=== PATIENT | female | born 1970 | race Caucasian/White ===

== ENCOUNTER 2019-05-20 10:06 | Outpatient (REF) | payer BC, SELFPAY ==
--- NOTE | 2019-05-20 09:15 | PAPFT_PTH ---
PATIENT: Jodie Resendez LOC: [facility] U#:[id number] AGE/SX: 48/F ROOM: RE05/20/[address]: Miguelina aJckson : 1970 BED: DIS: 05/20/2019 SPEC #: [id number] RECD: 05/21/19 13:00 STATUS: DANIEL REQ #: [id number] KARIE: 05/20/19 09:[address]: Miguelina Jackson DEPT: [facility] Cytology RECD BY: Leora Castellon Tissues: 1 - CX/ENDOCX FOR PAP SMEARS Procedures: PAP THIN PREP/UVM Screening HPV DNA PROBE Comments: [id number]
== END 2019-05-20 10:26 ==
LOC: NCHCN 10:06
PROVIDERS: PCP Nurse Practitioner Family; Visit Provider Nurse Practitioner Family
DX: Z12.4 Encounter for screening for malignant neoplasm of cervix (principal); Z11.59 Encounter for screening for other viral diseases; Z01.419 Encounter for gynecological examination (general) (routine) without abnormal findings
CPT/HCPCS: 88142; 87624

== ENCOUNTER 2019-05-31 13:38 | Outpatient (REF) | payer BC, SELFPAY ==
[2019-05-31 19:45] LABS: Calculated LDL 195 mg/dL; Cholesterol 270 mg/dL (50-200); Glucose 89 mg/dL (70-100); HDL Cholesterol 64 mg/dL (40-60); Triglyceride 58 mg/dL (30-150)
== END 2019-05-31 13:58 ==
LOC: NCHCN 13:38
PROVIDERS: PCP Nurse Practitioner Family; Visit Provider Nurse Practitioner Family
DX: Z00.00 Encounter for general adult medical examination without abnormal findings (principal); Z13.1 Encounter for screening for diabetes mellitus; Z13.220 Encounter for screening for lipoid disorders
CPT/HCPCS: 80061; 82947

== ENCOUNTER 2019-07-29 09:03 | Day surgery (SDC) | payer BC, SELFPAY ==
--- NOTE | 2019-07-29 06:45 | COLE_ITS ---
Date of service: 07/29/19 Time of Service: 10:04 Colonoscopy Report Date of procedure: 07/29/19 Pre-op diagnosis general: Colon CAncer Screening Post-op diagnosis procedure note: other (rectal polyps and Grade 1 internal hemorrhoids) Procedure: Colonoscopy with polypectomy by cold forceps Surgeon: Cee Mahmood Anesthesia proc note operative: other (General/ ASA2 /Kevin Augustine, COMPUTER NETWORKING INSTRUCTOR) Estimated blood loss (mL): 3 Pathology: other (Rectal polyps x4) Complications: None Disposition: same day Indications: The patient is here for Colonoscopy pre-op. She has no family history of colon cancer. She has not had any bowel habit changes. -Discussed colonoscopy bowel prep as well as the procedure. Discussed possible complications of the procedure to include bleeding, pain, perforation, missed small lesion/polyp, sore throat, aspiration and adverse reaction to the medications. Questions were answered to patient?s satisfaction. No guarantees were implied or given. Prep: Miralax/Dulcolax Procedure Start Time: 10:04 Procedure End Time: 10:29 Retraction Time: 11 minutes Findings: 4 small rectal polyps Grade 1 internal hemorrhoids Procedure Description: After informed consent was obtained the patient was taken to the procedure room and placed in a left decubitous position. Monitors were applied and a time out was done. The patients name, date of , procedure, allergies to medications and metal in their body was reviewed. The patient was then sedated. Once sedated and comfortable a rectal exam was done. External exam was normal. Internal exam revealed a normal sphincter tone and no palpable masses. The scope was then introduced and retro-flexed. Grade 1 internal hemorrhoids were identified. 4 small polyps were noted in the rectum. The scope was then advanced to the cecum with some difficulty. The colon was very floppy. Pressure had to be applied to the abdomen to get to the cecum. The TI and appendiceal orifice were identified. The prep was good. The scope was then slowly retracted over 11 minutes back into the rectum. Polyps were removed with cold forceps in the rectum x 4. The scope was removed and the patient was woken up and taken back to Same day surgery in stable condition. The patient tolerated the procedure well and there were no immediate complications. Follow up: The patient should follow up in 3-5 years unless they develop changes in bowel habits or other new gastrointestinal complaints.
--- NOTE | 2019-07-29 06:45 | W.UPDATEHP ---
Date of service: 07/29/19 Time of Service: 09:38 Updated H&P Refer to Most Recent Clinic Note/H&P Dated: 07/11/19 H&P was reviewed,patient examined No change has occured in patient's condition since last H&P completed
--- NOTE | 2019-07-29 06:46 | W.PM.DSUDISC ---
Discharge Plan Disposition Patient Disposition: HOME Condition: Good Discharge Details Reason For Visit: Colonoscopy Attending Provider: Cee Mahmood Primary Care Provider: Miguelina Jackson Home Meds and New Rx's Prescriptions: Continued sertraline [Zoloft] 50 mg tablet 50 mg PO DAILY RF: 0 One Daily Multi-Vit w-Mineral 4.5 mg iron tablet PO DAILY RF: 0 Discontinued polyethylene glycol 3350 17 gram/dose powder 238 g PO ONCE Qty: 238 RF: 0 bisacodyl [Dulcolax (bisacodyl)] 5 mg tablet,delayed release (DR/EC) 5 mg PO ONCE Qty: 4 RF: 0 Discharge Instructions Instructions: Colonoscopy (DC), Colorectal Polyps (DC), Hemorrhoids (DC) Additional Instructions: Findings: small internal hemorrhoids 4 small rectal polyps Follow up: 3-5 years Please call if you develop: fevers >101.5 Nausea or Vomiting Abdominal pain that is not transient DAY SURGERY UNIT POST ENDOSCOPY INSTRUCTIONS 1. Because there will be medication in your system for the next 24 hours, you may feel a little sleepy. Your coordination will be affected. Therefore: a. Do not drive or operate dangerous equipment for 24 hours. b. Do not drink alcohol beverages for 24 hours (not even beer). c. Plan to go home and rest for the day. 2. Generally there are no restrictions on your activity after a day or so has gone by, but you may feel a bit fatigued for a few days. 3 After you arrive home you may have a light meal and return to a normal diet as you can tolerate it without feeling sick to your stomach. 4. After surgery, you may feel pain or discomfort. This should be only transient, but if it persists please contact your doctor. 5. If there are any questions regarding the findings of your procedure, please feel free to contact your doctor. 6. If you are unable to contact your doctor with a problem, contact the hospital at [phone]. 7. Continue all your regular medications unless directed otherwise. I understand the above instructions and have no questions. Signature of Patient or Responsible Adult Escort Date/Time Name of Responsible Adult Escort Signature of Nurse Date/Time Activity:: Activity as Tolerated Diet:: High Fiber diet Discharge Orders Discharge Orders: Discharge Order (Routine); Ordered 07/29/19 Ordered By: Cee Mahmood DS: Diagnosis Discharge Diagnosis (1) S/P colonoscopy: Status: Acute (2) Colorectal polyps: Status: Acute (3) Internal hemorrhoids without complication: Status: Acute
[2019-07-29 09:34] VITALS: BP 131/74; PULSE 77; RESP 16; TEMP 36.3; O2SAT 99
--- NOTE | 2019-07-29 09:38 | HPE_ITS ---
Date of service: 07/29/19 Time of Service: 09:38 Updated H&P Refer to Most Recent Clinic Note/H&P Dated: 07/11/19 H&P was reviewed,patient examined No change has occured in patient's condition since last H&P completed cc: Dictated by: HARINI HEART MD Dictated: 07/29/19Time: 644 <Electronically signed by Cee Heart M.D.> Date: 09/28/18937 Date: Date: Transcribed Date: 07/29/19 Transcribed Time: 644By: GIOVANY
[2019-07-29] MEDS: Lactated Ringers 1,000 ML 80 ML IV (09:45)
--- NOTE | 2019-07-29 10:05 | BOWEL_PTH ---
PATIENT: Jodie Resendez LOC: [facility] U#:[id number] AGE/SX: 48/F ROOM: RE07/29/[address]: Cee Mahmood MD : 1970 BED: DIS: 07/29/2019 SPEC #: [id number] RECD: 07/29/19 12:48 STATUS: DANIEL REQ #: [id number] KARIE: 07/29/19 10:[address]: Cee Mahmood DEPT: Surgical Specimen RECD BY: Leora Castellon ENTERED: 07/29/19 12:49 SP TYPE: Bowel OTHR DR: Miguelina Jackson Tissues: 1 - BIOPSY BOWEL Procedures: GROSS AND MICRO LEVEL 4 Comments: [id number]
[2019-07-29 11:03] VITALS: BP 118/68; PULSE 65; RESP 16; TEMP 36.2; O2SAT 100
== END 2019-07-29 11:19 | disposition home or self-care (01) ==
LOC: SUR 09:04
PROVIDERS: PCP Nurse Practitioner Family; Visit Provider Surgery
PROC: 0DJD8ZZ Inspection of Lower Intestinal Tract, Via Natural or Artificial Opening Endoscopic (ICD-10-PCS; CPT 45378; principal; 2019-07-29 09:45)
DX: Z12.11 Encounter for screening for malignant neoplasm of colon (principal); K64.0 First degree hemorrhoids; K63.5 Polyp of colon
CPT/HCPCS: 45380; 81025; 88305; J2250; J3010

== ENCOUNTER 2019-09-11 01:48 | Outpatient (CLI) | payer BC, SELFPAY ==
--- NOTE | 2019-09-11 11:04 | DI.MAMMO_ITS ---
EXAM: MG MAMMO SCREENING CLINICAL HISTORY: SCREENING, [facility] Z00.00 TECHNIQUE: Mammograms were interpreted according to the usual protocol including computer analysis w [employer] CAD system, tomosynthesis and C-view imaging. COMPARISON: 2009 through 2014 FINDINGS: The breasts are composed of heterogeneously dense fibroglandular densities, Breast Density category C . No suspicious masses or suspicious microcalcifications are seen. No skin thickening or abnormal axillary lymph nodes are seen. There has been no significant change from prior exams. There is motion on the right MLO view. The patient should return for a repeat right MLO view at no a dditional charge. IMPRESSION: Left breast: BIRADS Category 1, negative mammogram. Yearly screening mammography is recommended. Right breast: BI-RADS Cat 0 - Assessment Incomplete: Need additional imaging evaluation. A repeat ri ght MLO view is requested. BREAST DENSITY: The mammogram demonstrates the patient's breast tissue is dense. Dense breast tissue is very common and is not abnormal but dense breast tissue can make it harder to find cancer on a ma mmogram. Also, dense breast tissue may increase their breast cancer risk. This information about the result of the mammogram report was provided to the patient to raise their awareness. Use this report when you speak with the patient about their risks for breast cancer, which includes their family hist ory. At that time, you may recommend for more screening tests (Ultrasound or MRI) as they might be us eful based on their risk. A negative radiographic report should not delay biopsy if a dominant or clinically suspicious mass is present. Up to ten percent of cancers are not identified on mammography. A negative report may reinforce clinical impression. Adenosis and dense breasts may obscure an underlying neoplasm. False positive reports average 6 to 10%.
== END 2019-09-11 02:08 ==
PROVIDERS: PCP Nurse Practitioner Family; Visit Provider Nurse Practitioner Family
DX: Z00.00 Encounter for general adult medical examination without abnormal findings (principal); Z12.31 Encounter for screening mammogram for malignant neoplasm of breast; R92.8 Other abnormal and inconclusive findings on diagnostic imaging of breast
CPT/HCPCS: 77063; 77067

== ENCOUNTER 2019-09-19 00:52 | Outpatient (CLI) | payer BC, SELFPAY ==
--- NOTE | 2019-09-19 14:17 | DI.MAMMO_ITS ---
EXAM: MG MAMMO SCREEN CALL BACK UNI CLINICAL HISTORY: F/U MAMMO, MOTION ON RT MLO VIEW. TECHNIQUE: Full field digital CC and MLO mammographic images were obtained with 3D tomosynthesis and utilizing computer aided detection (CAD). COMPARISON: 2010 to 2014 FINDINGS: Repeat MLO views were performed due to motion. Breast density: D, extremely dense which could obscure underlying abnormalities. Masses/Architectural Distortion: None seen. Microcalcifications: No suspicious pleomorphic-type calcifications are seen. Skin Thickening/Nipple Retraction: None. Axilla: Unremarkable. IMPRESSION: 1. BI-RADS category 1, negative. No significant interval change with no specific features of maligna ncy noted. 2. Unless there is more urgent need, screening mammography is recommended, as per [place] [employer] guidelines. Breast Density - Category D - Extremely dense A negative radiographic report should not delay biopsy if a dominant or clinically suspicious mass is present. Up to ten percent of cancers are not identified on mammography. A negative report may reinforce clinical impression. Adenosis and dense breasts may obscure an underlying neoplasm. False positive reports average 6 to 10%. Patient will receive a letter notifying them of these results.
== END 2019-09-19 01:12 ==
PROVIDERS: PCP Nurse Practitioner Family; Visit Provider Nurse Practitioner Family
DX: Z12.31 Encounter for screening mammogram for malignant neoplasm of breast (principal); R92.8 Other abnormal and inconclusive findings on diagnostic imaging of breast; N64.59 Other signs and symptoms in breast
CPT/HCPCS: 77063; 77067

== ENCOUNTER 2020-05-27 07:43 | Outpatient (REF) | payer BC, SELFPAY ==
[2020-05-27 21:16] LABS: Calculated LDL 180 mg/dL (<100); Cholesterol 253 mg/dL (<200); Glucose 92 mg/dL (74-106); HDL Cholesterol 66 mg/dL (40-60); TSH 0.71 uIU/mL (0.36-3.74); Triglyceride 39 mg/dL (<150)
== END 2020-05-27 08:03 ==
LOC: NCHCN 07:43
PROVIDERS: PCP Nurse Practitioner Family; Visit Provider Nurse Practitioner Family
DX: Z00.00 Encounter for general adult medical examination without abnormal findings (principal); Z13.220 Encounter for screening for lipoid disorders; Z13.1 Encounter for screening for diabetes mellitus; N95.1 Menopausal and female climacteric states
CPT/HCPCS: 80061; 82947; 84443

== ENCOUNTER 2021-09-22 08:46 | Outpatient (REF) | payer BC, SELFPAY ==
[2021-09-22 14:15] LABS: Calculated LDL 176 mg/dL (<100); Cholesterol 248 mg/dL (<200); Glucose 88 mg/dL (74-106); HDL Cholesterol 58 mg/dL (40-60); Triglyceride 70 mg/dL (<150)
[2021-09-23 05:49] LABS: Vitamin D 25 Total 52.1 ng/mL (30-100)
== END 2021-09-22 08:47 | disposition home or self-care (01) ==
LOC: NCHCN 08:46
PROVIDERS: PCP Nurse Practitioner Family; Visit Provider Nurse Practitioner Family
DX: Z00.00 Encounter for general adult medical examination without abnormal findings (principal); R53.83 Other fatigue
CPT/HCPCS: 80061; 82306; 82947

== ENCOUNTER 2021-12-01 02:27 | Outpatient (CLI) | payer BC, SELFPAY ==
--- NOTE | 2021-12-01 08:00 | DI.MAMMO_ITS ---
Exam(s) MAMMO SCREENING EXAM: MAMMO SCREENING CLINICAL HISTORY: SCREENING, [facility], Z00.00 TECHNIQUE: Mammograms were interpreted according to the usual protocol including computer analysis w [employer] CAD system, tomosynthesis and C-view imaging. COMPARISON: FINDINGS: The breasts are heterogeneously dense. No dominant mass or clumped microcalcification is identified in either breast. The current examination is compared with previous examinations including September 05 and there has been no gross interval change in appearance in comparison with the prior studies. IMPRESSION: No specific evidence of malignancy at this time. Routine screening examinations are suggested at yea rly intervals due to the family history of breast carcinoma. BI-RADS Category 1 - Negative Breast Density - Category C - Heterogeneously dense
== END 2021-12-01 02:47 ==
PROVIDERS: PCP Nurse Practitioner Family; Visit Provider Nurse Practitioner Family
DX: Z12.31 Encounter for screening mammogram for malignant neoplasm of breast (principal); R92.8 Other abnormal and inconclusive findings on diagnostic imaging of breast
CPT/HCPCS: 77063; 77067

== ENCOUNTER 2022-09-28 13:29 | Outpatient (REF) | payer BC, SELFPAY ==
--- OUTSIDE RECORDS SUMMARY | 2022-09-28 13:34 | XMS_ITS ---
:1970 Author Organization [facility] Address [address] [place] [address] Care Team Providers Name Role Phone Keith Britton Unavailable Unavailable PROBLEMS Type Condition ICD9-CM [id number] Onset Condition SNOMED Cod e Code Code Dates Status Problem Pain in right M79.671 Active 149240 [id number] foot Problem Other hammer M20.42 Active 9808102 427143023 toe(s) (acquired), left foot Problem Other hammer M20.41 Active 8068386 706045247 toe(s) (acquired), right foot Problem Hallux valgus M20.12 Active 802595 01 (acquired), left foot Problem Pain of left M79.672 Active 2822454 2 foot Problem Scar tissue L90.5 Active 67447618 Problem Bunion of great M21.611 Active 4156 07081 toe of right foot Problem Bunion of great M21.612 Active 4156 95183 toe of left foot Problem Neuroma of G57.62 Active 544376638 second interspace of left foot Problem Pigmented skin L81.9 Active 0008 lesion ALLERGIES No Known Allergies ENCOUNTERS Encounter Location Date Diagnosis [facility] [address] Dec, Postop [place] Z09 [place] [address] tissue L90. 5 [facility] [address] Dec, [place] [address] [facility] [address] Nov, [place] [address] [facility] [address] Nov, [place] [address] [facility] [address] Nov, Postop [place] Z09 [place] [id number] tissue L90. 5 [facility] [address] Nov, [place] [address] [facility] [address] 08 Nov, 2017 [facility]op [facility] [place] [id number] [facility] [address] 14 Oct, 2017 [facility]op [facility] [place] [id number] [facility] [address] Sep, [facility]op [facility] [place] [id number] [facility] [address] Sep, Postop [facility] [place] [id number] [facility] [address] Sep, [place] [address] [address], [place] [address], [place] [address] [facility] [address] 21 Aug, 2017 [place] [address] [facility] [address] 14 Aug, 2017 [place] [id number] interspace of left foot G57.62 ; Pigment ed skin lesion L81.9 ; H allux valgus (acquired ), left foot M20.12 and Bunion of great toe of lef t foot M21.612 [facility] [address] 27 Jul, 2017 [place] [id number] interspace of left foot G57.62 ; Pigment ed skin lesion L81.9 ; H allux valgus (acquired ), left foot M20.12 and Bunion of great toe of lef t foot M21.612 [facility] [address] 20 Jul, 2017 [place] [id number] [facility] [address] 14 May, 2017 [place] [id number] interspace of left foot G57.62 ; Pigment ed skin lesion L81.9 ; H allux valgus (acquired ), left foot M20.12 and Bunion of great toe of lef t foot M21.612 [facility] [address] Dec, [place] [id number] interspace of left foot G57.62 and Pigme nted skin lesion L81.9 [facility] [address] 18 Dec, 2016 [facility] [place] [id number] [facility] [address] [facility] 31 Sep, 2016 Pain of left foot M79.672 [address] [place], [place] ; Pain in right foot [address] M79.671 ; Bunion of great toe of left foot M21.612 ; Bunion of grea t toe of right foot M21.6 11 ; Other hammer toe (s) (acquired), left foot M20.42 and Other hammer toe(s) (acquired ), right foot M20.41 [facility] [address] [facility] 13 Aug, 2016 [place] [address] IMMUNIZATIONS Vaccine Route Administration Date Status Dexamethasone sodium phosphate OT Jul 31, 2017 A dministered 4mg per mL Other/Miscellaneous Depo-medrol 40 OT Jul 31, 2017 Administered Other/Miscellaneous SOCIAL HISTORY Qualifiers Date Former Smoker REASON FOR REFERRAL FUNCTIONAL STATUS PLAN OF CARE Activity Details Follow Up prn Reason: VITAL SIGNS Height 71 in 2018-01-01 Height 71 in 2017-11-23 Height 71 in 2017-11-09 Height 71 in 2017-10-18 Height 71 in 2017-10-02 Height 71 in 2017-09-25 Height 71 in 2017-08-17 Height 71 in 2017-07-31 Height 71 in 2017-05-18 Height 71 in 2016-12-28 Height 71 in 2016-10-04 Weight 139.2 lbs 2018-01-01 Weight 135.8 lbs 2017-11-23 Weight 141.2 lbs 2017-08-17 Weight 138.8 lbs 2017-07-31 Weight 141.8 lbs 2017-05-18 Weight 133.4 lbs 2016-12-28 Weight 131.0 lbs 2016-10-04 BMI 19.41 kg/m2 2018-01-01 BMI 18.94 kg/m2 2017-11-23 BMI 19.69 kg/m2 2017-08-17 BMI 19.36 kg/m2 2017-07-31 BMI 19.77 kg/m2 2017-05-18 BMI 18.60 kg/m2 2016-12-28 BMI 18.27 kg/m2 2016-10-04 Temperature 98.1 degrees Fahrenheit 2018-01-01 Temperature 98.4 degrees Fahrenheit 2017-11-23 Temperature 98.2 degrees Fahrenheit 2017-11-09 Temperature 98.1 degrees Fahrenheit 2017-10-18 Temperature 97.8 degrees Fahrenheit 2017-10-02 Temperature 98.4 degrees Fahrenheit 2017-09-25 Temperature 97.9 degrees Fahrenheit 2017-08-17 Temperature 97.8 degrees Fahrenheit 2017-07-31 Temperature 98.1 degrees Fahrenheit 2017-05-18 Temperature 97.5 degrees Fahrenheit 2016-12-28 Temperature 97.6 degrees Fahrenheit 2016-10-04 Heart Rate 57 /min 2018-01-01 Heart Rate 74 /min 2017-11-23 Heart Rate 63 /min 2017-11-09 Heart Rate 78 /min 2017-10-18 Heart Rate 78 /min 2017-10-02 Heart Rate 66 /min 2017-09-25 Heart Rate 72 /min 2017-08-17 Heart Rate 74 /min 2017-07-31 Heart Rate 78 /min 2017-05-18 Heart Rate 62 /min 2016-12-28 Heart Rate 60 /min 2016-10-04 Respiratory Rate 16 /min 2018-01-01 Respiratory Rate 16 /min 2017-11-23 Respiratory Rate 16 /min 2017-11-09 Respiratory Rate 16 /min 2017-10-18 Respiratory Rate 16 /min 2017-10-02 Respiratory Rate 16 /min 2017-09-25 Respiratory Rate 18 /min 2017-08-17 Respiratory Rate 18 /min 2017-07-31 Respiratory Rate 16 /min 2017-05-18 Respiratory Rate 18 /min 2016-12-28 Respiratory Rate 17 /min 2016-10-04 Oximetry 99 % 2018-01-01 Oximetry 98 % 2017-11-23 Oximetry 98 % 2017-11-09 Oximetry 100 % 2017-10-18 Oximetry 99 % 2017-10-02 Oximetry 99 % 2017-09-25 Oximetry 99 % 2017-08-17 Oximetry 100 % 2017-07-31 Oximetry 98 % 2017-05-18 Oximetry 99 % 2016-12-28 Oximetry 99 % 2016-10-04 Blood pressure systolic 120 mm Hg 2018-01-01 Blood pressure diastolic 76 mm Hg 2018-01-01 MEDICATIONS Medication Instructions Dosage Frequency Start End Duration Statu s Date Date VITAMIN D3 1000 orally once a 1 tab(s) 24h A ctive intl units day MULTIVITAMIN orally once a 1 tab(s) 24h Acti ve Multiple day Vitamins -WORK Pt will be Active STATUS-UNABLE TO re-evaluat WORK the above ed in named pt is about 2 unable to work weeks until further notice VOLTAREN TOPICAL applied 2 g 6h Sep, day(s) Activ e 1% topically 4 2017 times a day PROCEDURES Procedure Date Ordered Result Body Site INTERP FOOT, 3 VIEWS May 18, 2017 POD-xray foot, 3 views November 09, 2017 INTERP FOOT, 3 VIEWS November 09, 2017 N BLOCK INJ, PLANTAR DIGIT Jul 31, 2017 Depo-medrol 40 May 18, 2017 COBAN TAPE ([id number]) Oct 02, 2017 Depo-medrol 40 December 28, 2016 COBAN TAPE ([id number]) Sep 25, 2017 N BLOCK INJ, PLANTAR DIGIT December 28, 2016 INTERP FOOT, 3 VIEWS Oct 18, 2017 POD-CORK BASE HEEL WEDGE([id number]) Oct 04, 2016 POD-xray foot, 3 views November 23, 2017 POD-xray foot, 3 views May 18, 2017 INTERP FOOT, 3 VIEWS November 23, 2017 N BLOCK INJ, PLANTAR DIGIT May 18, 2017 COBAN TAPE ([id number]) Oct 18, 2017 POD-xray foot, 3 views Oct 18, 2017 Depo-medrol 40 Jul 31, 2017 INJ DEXETHOSONE SODIM PHOSHATE 1 MG Jul 31, 2017 RESULTS Name Result Date Reference Range UA-Urine ,AT [facility] 2017-09-20 HCG-U NEGATIVE NEGATIVE CR C-ARM MINI 2017-09-20 See Below For Report MULTIPLE LABS 2016-03-15 REASON FOR VISIT F/U physical therapy - Post Op, Referral Done, Pt states all done physical therapy and states is ready to return to work, patient update, 3 week follow up , Note for work, paperwork, Rehab, trouble with foot, Referral Done, X-rays, S/P Winston type bunionectomy left foot and neurectomy second intermetatarsal space left foot, 09/20/17, Concerns about numbness, post op#4 , Referral Done, S/P Winston type bunionectomy left foot and neurectomy second intermetatarsal space left foot, 09/20/17, Pt states she has been staying off foot as much as possible, elevating. Generally doing well., post op #3, referraldone, pt has no concerns today, Post Op #2, Referral Done, pt has no concerns today, Post Op #1, Referral Done, pt states that she has no concerns. Her pain has been ok, PDMP query, Winston type bunionectomy left foot; #2 neurectomy second intermetatarsal space left foot. , Winston Bunion, left, PDMP query, Final pre op paperwork, Referral Done, Pt states here for final pre op paperwork, Injection, Referral Done, pt states that she is here for a left foot injection, Foot injection, f/u referral done, Pt states left foot pain in the ball of foot and numbness in toes, bunion is also painful at times, Medications reviewed w/pt,med. list is correct ML, 4 week fu , More pain in foot, Referral Done, Pt states left foot pain in ball of foot and numbness in toes, Medications reviewed w/pt,med. list is correct ML, Still having issues with foot, foot pain referral done, Medications reviewed w/pt,med. list is correct -KMM, Pt states that she has been having a burning sensation on the bottom of the pads of both her feet x 6 months. , Pt states that she works 12 hour shifts and is on her feet all the time., PCP referred pt to PT and had orthotics made which have not seemed to help., Pt would like advice as to what brand of shoes she should buy., Inputting information Insurance Providers [facility] Member Patient Patient Patient Patient Patient Subscriber Subscriber Subscriber Group Insurance Plan Plan Plan Plan ID Relationship Address Phone Name Date of ID Name Date of No Type Insurance Insurance Insurance Coverage to Subscriber Address Phone Name Dates [facility] [address] self SANDRA 1970 [id number] [place] [id number] SELF PAY [address] SELF PAY self SANDRA 1970 [facility] [id number] [place]
[2022-09-28 16:07] LABS: Calculated LDL 175 mg/dL (<100); Cholesterol 258 mg/dL (<200); Glucose 100 mg/dL (74-106); HDL Cholesterol 72 mg/dL (40-60); Triglyceride 55 mg/dL (<150)
== END 2022-09-28 13:30 | disposition home or self-care (01) ==
LOC: NCHCN 13:29
PROVIDERS: PCP Nurse Practitioner Family; Visit Provider Nurse Practitioner Family
DX: Z00.00 Encounter for general adult medical examination without abnormal findings (principal); Z13.1 Encounter for screening for diabetes mellitus; Z13.220 Encounter for screening for lipoid disorders
CPT/HCPCS: 80061; 82947

== ENCOUNTER 2023-10-04 11:33 | Outpatient (REF) | payer BC, SELFPAY ==
--- NOTE | 2023-10-04 08:30 | PAPFT_PTH ---
PATIENT: Jodie Resendez LOC: [facility]#:[id number] AGE/SX: 52/F ROOM: RE10/04/[address]: Miguelina Jackson : 1970 BED: DIS: 10/04/2023 SPEC #: [id number] RECD: 10/04/23 17:16 STATUS: DANIEL REHung #: [id number] KARIE: 10/04/23 08:[address]: Miguelina Jackson DEPT: [facility] Cytology RECD BY: Leora Castellon Tissues: 1 - CX/ENDOCX FOR PAP SMEARS Procedures: PAP THIN PREP/UVM Screening HPV DNA PROBE Comments: [id number]
[2023-10-04 15:52] LABS: Calculated LDL 144 mg/dL (<100); Cholesterol 224 mg/dL (<200); Glucose 99 mg/dL (74-106); HDL Cholesterol 69 mg/dL (40-60); Triglyceride 56 mg/dL (<150)
== END 2023-10-04 11:34 | disposition home or self-care (01) ==
LOC: NCHCN 11:33
PROVIDERS: PCP Nurse Practitioner Family; Visit Provider Nurse Practitioner Family
DX: Z00.00 Encounter for general adult medical examination without abnormal findings (principal)
CPT/HCPCS: 80061; 82947; 88142; 87624

== ENCOUNTER → 2023-10-11 01:51 | Outpatient (CLI) | payer BC, SELFPAY ==
--- NOTE | 2023-10-11 07:55 | DI.MAMMO_ITS ---
Exam(s) MAMMO SCREENING EXAM: MAMMO SCREENING CLINICAL HISTORY: SCREENING, Z12.31. TECHNIQUE: Bilateral full field digital CC and MLO mammographic images were obtained with 3D tomosyn thesis and utilizing computer aided detection (CAD). COMPARISON: Prior mammograms were reviewed. FINDINGS: Fibroglandular tissue pattern is again noted be dense, this somewhat decreasing the sensitivity of th e mammogram for finding hidden underlying lesions. No CAD designations. There are no obvious new spiculated masses nor malignant appearing microcalcification groups. There is no significant architectural distortion nor skin thickening-retraction. IMPRESSION: No radiographic evidence of malignancy. BI-RADS Category 1 - Negative Breast Density - Category C - Heterogeneously dense Breast density Category C or D implies that the patient has dense breast tissue. Dense breast tissue can make it harder to find cancer on a mammogram. Dense breast tissue is also associated with an incr eased risk of breast cancer. This information about the result of the mammogram report was provided to the patient to raise their awareness. Use this report when you speak with the patient about their risks for breast cancer, which includes their family history. At that time, you may recommend additional screening tests (Ultrasoun d or MRI) as these tests may add significant information. A negative radiographic report should not delay biopsy if a dominant or clinically suspicious mass is present. Up to ten percent of cancers are not identified on mammography. A negative report may reinforce clinical impression. Adenosis and dense breasts may obscure an underlying neoplasm. False positive reports average 6 to 10%. Patient will receive a letter notifying them of these results.
== END ==
PROVIDERS: PCP Nurse Practitioner Family; Visit Provider Nurse Practitioner Family
DX: Z12.31 Encounter for screening mammogram for malignant neoplasm of breast (principal)
CPT/HCPCS: 77063; 77067

== ENCOUNTER 2025-01-23 02:39 | Outpatient (CLI) | payer BC, SELFPAY ==
--- NOTE | 2025-01-23 | DI.RAD_ITS ---
Exam(s) XR LUMBAR SPINE COMPLETE EXAM: XR LUMBAR SPINE COMPLETE CLINICAL HISTORY: ACUTE MIDLINE LOW BACK PAIN WITH RT SCIATICA,M54.41,? ddd or nf stenosis. TECHNIQUE: 2D digital imaging was performed. Five views. COMPARISON: No exams were available for comparison FINDINGS: BONES: No fracture or destructive lesion. Vertebral body heights are maintained. Mild facet hypert rophy identified at L5-S1.. DISKS: Severe narrowing of the L5-S1 disc space. The remaining intervertebral disc spaces are main tained. ALIGNMENT: Lumbar spinal alignment is within normal limits. SOFT TISSUE: Normal. IMPRESSION: Degenerative disc changes facet degenerative change at L5-S1. DATA REPOSITORY: RADIATION DOSE DELIVERED:
== END 2025-01-23 02:59 ==
PROVIDERS: PCP Family Medicine; Visit Provider Family Medicine
DX: M54.41 Lumbago with sciatica, right side (principal); M51.370 Other intervertebral disc degeneration, lumbosacral region with discogenic back pain only
CPT/HCPCS: 72110